=== PATIENT | female | born 1995 | race Caucasian/White ===

== ENCOUNTER 2019-06-19 23:14 | Inpatient (IN) | payer OTHER ==
--- NOTE | 2019-06-19 23:30 | RAD ---
Portable frontal chest radiograph: 06/19/2019 COMPARISON: None HISTORY: Intubated patient FINDINGS: There is an endotracheal tube and nasogastric tube in proper position. There is mild linear density in the medial aspect of both lung bases. No focal consolidation. IMPRESSION: Streaky opacity in both lung bases suggesting infiltrate, volume loss, or aspiration.
[2019-06-19 23:32] LABS: #Eosinphils 0.1 thou/uL (0.0-0.7); #Monocytes 0.3 thou/uL (0.11-0.59); #Neutrophils 2.7 thou/uL (1.40-6.50); %Basophils 0.4 % (0.0-1.0); %Eosinophils 2.3 % (0.0-10.0); %Lymphocytes 24.8 % (21.0-51.0); %Monocytes 6.6 % (0.0-10.0); %Neutrophils 65.8 % (42.0-75.0); Hemoglobin 11.2 g/dL (12.0-16.0); Mean Corpuscular HGB CONC 33.5 g/dL (32.0-36.0); Mean Corpuscular Hemoglobin 28.5 pg (27.0-31.0); Mean Corpuscular Volume 84.9 fL (78.0-98.0); Mean Platelet Volume 7.9 fL (7.4-10.4); Platelet Count 177 thou/uL (130-400); Red Blood Cell (RBC) Count 3.93 mill/uL (4.20-5.40); White Blood Cell (WBC) Count 4.1 thou/uL (4.8-10.8)
[2019-06-19 23:34] LABS: Actual Bicarbonate (HCO3a) 16.9 mEq/L (22-28); Base Excess (BEa) -9.1 mEq/L (-2.0 to +3.0); CO2 Tension 36.9 mmHg (35.0-45.0); Hemoglobin (Hb) 11.7 g/dL (12.0-16.0); O2 Tension (PaO2) 385.5 mmHg (80.0-100.0); pH, Arterial 7.28 (7.35-7.45)
[2019-06-19 23:35] LABS: ALV-art Gradient 281.375 (0-20); Analyzer IN Cardio ER; Calcium, Ionized 1.15 mmol/L (1.12-1.30); Carboxyhemoglobin (COHb) 0.3 gm% (0.0-3.0); Potassium - ABG Lab 2.91 mmol/L (3.70-5.30); Puncture Site RRA
[2019-06-19 23:35] LABS: Bilirubin Negative (Negative); Blood, Urine Negative (Negative); Glucose, Urine (Dipstick) Negative (Negative); Leukocyte Negative (Negative); Nitrite Negative (Negative); Protein, Urine (Dipstick) Negative (Neg-Trace); Urobilinogen 0.2 mg/dL (Less than 2)
[2019-06-19 23:36] LABS: Clarity Clear (Clear)
[2019-06-19 23:37] LABS: BHCG - Serum Negative (NEGATIVE); Pregs Control Background? CLEAR/WHITE (CLR/WHITE); Pregs Control Bar Appear? YES (CONTROL BAR)
[2019-06-19 23:53] LABS: ALT (SGPT) 15 U/L (8-55); AST (SGOT) 14 U/L (5-34); Acetaminophen Less than 6.0 mcg/mL (10.0-30.0); Albumin 3.4 g/dL (3.5-5.0); Alcohol 187 mg/dL (Less than 10); Alkaline Phosphatase 97 U/L (40-110); Anion Gap 12 mmol/L (10-20); BUN (Urea Nitrogen) 5 mg/dL (7.0-18.7); Bilirubin, Total 0.8 mg/dL (0.2-1.2); Calc. Creatinine Clearance 0 mL/min (70-130); Calcium 7.8 mg/dL (7.8-10.44); Carbon Dioxide 18 mmol/L (22-29); Chloride 110 mmol/L (98-107); Estimated GFR-MDRD Greater than 90; Glucose 88 mg/dL (70-105); Protein, Total 5.4 g/dL (6.0-8.3); Salicylate Less than 8.0 mg/dL (15.0-30.0); Sodium 137 mmol/L (136-145)
[2019-06-19 23:56] LABS: Amphetamine Detected (NotDetected); Barbiturates Screen Not Detected (NotDetected); Benzodiazepine Screen Not Detected (NotDetected); Cocaine Metabolite Screen Not Detected (NotDetected); Medtox Control Line Valid? VALID (VALID); Medtox Reader # READER 4; Methadone Not Detected (NotDetected); Methamphetamine Not Detected (NotDetected); Opiate Screen Not Detected (NotDetected); Oxycodone Screen Not Detected (NotDetected); Phencyclidine (PCP) Not Detected (NotDetected); THC/Cannabinoid Screen Not Detected (NotDetected); Tricyclic Screen Not Detected (NotDetected)
[2019-06-19 23:58] LABS: Potassium 2.7 mmol/L (3.5-5.1)
[2019-06-20] MEDS ORDERED: CCU Electrolyte Replacement 1 EACH IVPB ONE (00:39)
[2019-06-20] MEDS ORDERED: PHOS-NAK 1 PKT PACK PO PRN ×2 (00:43)
[2019-06-20] MEDS ORDERED: Morphine 2 MG/ML SYRINGE SLOW IVP PRN (00:43)
[2019-06-20] MEDS ORDERED: Potassium Chloride 40 MEQ in Premix Bag 1 BAG IVPB PRN (00:43)
[2019-06-20] MEDS ORDERED: fentaNYL Citrate/PF 2,000 MCG in Sodium Chloride 0.9% 60 ML IV SCH (00:43)
[2019-06-20] MEDS ORDERED: Potassium Chloride 40 MEQ in Sodium Chloride 0.9% 250 ML 250 ML IVPB PRN (00:43)
[2019-06-20] MEDS ORDERED: Potassium Phosphate 15 MMOL in Sodium Chloride 0.9% 250 ML 250 ML IV PRN (00:43)
[2019-06-20] MEDS ORDERED: CCU ELECTROLYTE REPLACEMENT PROTOCOL FS PRN (00:43)
[2019-06-20] MEDS ORDERED: Potassium Phosphate 12 MMOL in Sodium Chloride 0.9% 250 ML 250 ML IV PRN (00:43)
[2019-06-20] MEDS ORDERED: Magnesium Oxide 400 MG TAB PO PRN ×2 (00:43)
[2019-06-20] MEDS ORDERED: Fentanyl BOLUS 250 ML IVPB PRN (00:43)
[2019-06-20] MEDS ORDERED: Potassium Chloride 20 MEQ TAB PO PRN (00:43)
[2019-06-20] MEDS ORDERED: DISCONTINUE PREVIOUS NARCOTIC PAIN MEDICATIONS AND BENZODIAZEPINES FS SCH (00:43)
[2019-06-20] MEDS ORDERED: Propofol BOLUS 1,000 MG/100 ML VIAL IV PRN (00:43)
[2019-06-20] MEDS ORDERED: Potassium Phosphate 9 MMOL in Sodium Chloride 0.9% 100 ML IVPB PRN (00:43)
[2019-06-20] MEDS ORDERED: Lorazepam 2 MG/ML VIAL SLOW IVP PRN (00:43)
[2019-06-20] MEDS ORDERED: Magnesium 2 GM/50 ML 2 GM in Premix Bag 1 BAG IVPB PRN (00:43)
[2019-06-20] MEDS ORDERED: Potassium Chloride 40 MEQ in Sodium Chloride 0.9% 250 ML 250 ML IVPB SCH (00:45)
[2019-06-20] MEDS ORDERED: Ventilator Sedation Protocol 1 EACH FS SCH (00:45)
[2019-06-20] MEDS ORDERED: Ketamine 50 MG/ML (10ML VIAL) ONE (00:50)
[2019-06-20 01:55] VITALS: BMI 35.8
[2019-06-20] MEDS: 1/2 NS w/KCL 20 mEq 1,000 ML IV SCH ×3 (02:03→17:24)
[2019-06-20] MEDS: Propofol 1,000 MG/100 ML VIAL IV PRN ×3 (02:23→10:00)
--- NOTE | 2019-06-20 05:28 | HP ---
CHIEF COMPLAINT: Overdose and altered mental status. HISTORY OF PRESENT ILLNESS: Ms. Whitehead is a 23-year-old female with past medical history of ? depression, was brought to the emergency room by EMS for evaluation of possible overdose and alcohol abuse. As per EMS, the patient's boyfriend reported she took phentermine. The patient arrives intubated. EMS report GCS 4 on the scene. The patient was given Narcan with no response. Currently, patient is intubated. No further history can be obtained at this time. PAST MEDICAL HISTORY: Depression? PAST SURGICAL HISTORY: . PAST PSYCHIATRIC HISTORY: Anxiety and depression. SOCIAL HISTORY: Drinks socially. No history of smoking reported. ALLERGIES: UNCONFIRMED, NO KNOWN ALLERGIES. HOME MEDICATIONS: Phentermine? REVIEW OF SYSTEMS: Unable to obtain due to patient's underlying medical condition. FAMILY HISTORY: Unknown. PHYSICAL EXAMINATION: GENERAL: The patient is a currently intubated and sedated. VITAL SIGNS: Blood pressure is 125/81, pulse is 85, respiratory rate is 12, temperature is 95. HEAD AND NECK: Normocephalic and atraumatic. NECK: Supple. No JVD. CHEST: Fair bilateral air entry. HEART: S1, S2. Regular. ABDOMEN: Soft. Bowel sounds present. NEUROLOGIC: Intubated and sedated. PSYCHIATRIC: Unable to assess. EXTREMITIES: No clubbing, no cyanosis. LABORATORY DATA: WBC 4.1, hemoglobin 11.2, and platelets 177. Sodium 137, potassium 2.7, BUN is 5. WBC 4.1, hemoglobin 11.2, platelets 177. Urine drug screen positive for amphetamine. Plasma alcohol level is 187. ASSESSMENT: 1. Acute encephalopathy, toxic/metabolic, acute respiratory failure. 2. Alcohol intoxication. 3. Drug overdose. 4. Anxiety and depression history. PLAN: 1. Admit to ICU. 2. Continue full ventilator support. 3. Keep n.p.o. 4. IV fluids. 5. Consult Pulmonary/ebd teacher for critical care management and ventilator management. 6. GI and DVT prophylaxis as appropriate. 7. Expected length of stay, 2 midnights or more. Job ID: [id number]
[2019-06-20 06:37] LABS: Actual Bicarbonate (HCO3a) 16.2 mEq/L (22-28); Base Excess (BEa) -7.9 mEq/L (-2.0 to +3.0); CO2 Tension 29.2 mmHg (35.0-45.0); Calcium, Ionized 1.19 mmol/L (1.12-1.30); Carboxyhemoglobin (COHb) 0.5 gm% (0.0-3.0); Hemoglobin (Hb) 13.1 g/dL (12.0-16.0); pH, Arterial 7.36 (7.35-7.45)
[2019-06-20 06:56] LABS: Puncture Site RRAD
[2019-06-20 08:56] LABS: #Eosinphils 0.1 thou/uL (0.0-0.7); #Lymphocytes 1.4 thou/uL (1.20-3.40); #Monocytes 0.6 thou/uL (0.11-0.59); #Neutrophils 6.2 thou/uL (1.40-6.50); %Basophils 0.2 % (0.0-1.0); %Eosinophils 1.1 % (0.0-10.0); %Lymphocytes 16.5 % (21.0-51.0); %Monocytes 7.1 % (0.0-10.0); Hemoglobin 12.7 g/dL (12.0-16.0); Mean Corpuscular HGB CONC 32.4 g/dL (32.0-36.0); Mean Corpuscular Hemoglobin 27.8 pg (27.0-31.0); Mean Corpuscular Volume 85.8 fL (78.0-98.0); Mean Platelet Volume 8.3 fL (7.4-10.4); Platelet Count 217 thou/uL (130-400); RBC Distribution Width 13.2 % (11.5-14.5); Red Blood Cell (RBC) Count 4.56 mill/uL (4.20-5.40); White Blood Cell (WBC) Count 8.3 thou/uL (4.8-10.8)
[2019-06-20] MEDS ORDERED: FLU VACC QS2019-20(6MOS UP)/PF 60 MCG/0.5 ML SYRINGE IM ONE (09:00)
[2019-06-20] MEDS: Famotidine/PF 20 mg/2ml Vial SLOW IVP SCH ×2 (09:15→19:58)
[2019-06-20] MEDS: Heparin 5,000 UNITS/ML VIAL SC SCH ×2 (09:15→19:58)
[2019-06-20 09:20] LABS: ALT (SGPT) 17 U/L (8-55); AST (SGOT) 14 U/L (5-34); Albumin 3.7 g/dL (3.5-5.0); Alkaline Phosphatase 112 U/L (40-110); Anion Gap 16 mmol/L (10-20); BUN (Urea Nitrogen) 4 mg/dL (7.0-18.7); Bilirubin, Total 1.1 mg/dL (0.2-1.2); Calc. Creatinine Clearance 164 mL/min (70-130); Calcium 8.8 mg/dL (7.8-10.44); Carbon Dioxide 15 mmol/L (22-29); Chloride 114 mmol/L (98-107); Estimated GFR-MDRD Greater than 90; Globulin 2.4 g/dL (2.4-3.5); Glucose 76 mg/dL (70-105); Protein, Total 6.1 g/dL (6.0-8.3); Sodium 141 mmol/L (136-145)
--- NOTE | 2019-06-20 14:28 | CON ---
DATE OF CONSULTATION: 06/20/2019 HISTORY OF PRESENT ILLNESS: Ms. Whitehead is a 23-year-old female who apparently was intubated for respiratory depression associated with an overdose. She is wide awake. Apparently, she was intubated in the field. Her blood alcohol level is 187. PAST MEDICAL HISTORY: Remarkable for and depression. SOCIAL HISTORY: Unknown. ALLERGIES: NO REPORTED ALLERGIES. FAMILY HISTORY: Unknown. REVIEW OF SYSTEMS: Not obtainable since the patient is intubated. OBJECTIVE: VITAL SIGNS: Heart rate this morning was in the 90s, respiratory rate was in the teens, minute volume is about 6 L a minute. HEAD AND NECK: Unremarkable. Pupils are equal. Sclerae are anicteric. NECK: Supple. LUNGS: Clear. HEART: Regular rhythm. No S3. ABDOMEN: Soft and nontender. EXTREMITIES: Without clubbing, cyanosis, or edema. LABORATORY DATA: White count 8.3, hemoglobin 12.7, platelets 217. Electrolytes ; sodium 141, potassium 4, chloride 114, bicarb 15, BUN 4, creatinine 0.76. IMPRESSION: 1. Status post intubation for an overdose. 2. Hyperchloremic acidosis, likely iatrogenic related IV fluids. I felt she was a candidate for extubation. This has been done successfully. She can be transferred out of the critical care unit if she is stable for 4 hours. Critical care time 35 min. Job ID: [id number] MTDD
[2019-06-21] MEDS: 1/2 NS w/KCL 20 mEq 1,000 ML IV SCH ×3 (01:31→22:07)
[2019-06-21 04:33] LABS: Band 3 % (5-11); Eosinophils 5 % (0-10); Hemoglobin 11.7 g/dL (12.0-16.0); Lymphocytes 19 % (21-51); MDiff Complete? YES; Mean Corpuscular HGB CONC 33.6 g/dL (32.0-36.0); Mean Corpuscular Hemoglobin 28.6 pg (27.0-31.0); Mean Corpuscular Volume 85.2 fL (78.0-98.0); Mean Platelet Volume 8.7 fL (7.4-10.4); Monocytes 3 % (0-10); Neutrophil 69 % (42-75); Platelet Count 187 thou/uL (130-400); RBC Distribution Width 13.4 % (11.5-14.5); Reactive Lymphocytes 1 % (0-10); Red Blood Cell (RBC) Count 4.09 mill/uL (4.20-5.40); White Blood Cell (WBC) Count 5.2 thou/uL (4.8-10.8)
[2019-06-21 04:37] LABS: ALT (SGPT) 14 U/L (8-55); AST (SGOT) 11 U/L (5-34); Albumin 3.5 g/dL (3.5-5.0); Alkaline Phosphatase 111 U/L (40-110); Anion Gap 11 mmol/L (10-20); BUN (Urea Nitrogen) 5 mg/dL (7.0-18.7); Bilirubin, Total 1.5 mg/dL (0.2-1.2); Calc. Creatinine Clearance 156 mL/min (70-130); Calcium 8.6 mg/dL (7.8-10.44); Carbon Dioxide 20 mmol/L (22-29); Chloride 109 mmol/L (98-107); Estimated GFR-MDRD Greater than 90; Globulin 2.2 g/dL (2.4-3.5); Glucose 72 mg/dL (70-105); Protein, Total 5.7 g/dL (6.0-8.3); Sodium 136 mmol/L (136-145)
[2019-06-21] MEDS: Heparin 5,000 UNITS/ML VIAL SC SCH ×2 (08:39→20:27)
[2019-06-21] MEDS: Famotidine/PF 20 mg/2ml Vial SLOW IVP SCH ×2 (08:40→20:27)
--- NOTE | 2019-06-21 15:30 | PDOC.HOSPP ---
- Subjective Encounter Date: 06/21/19 Subjective: The patient is asymptomatic - Objective Vital Signs & Weight: Vital Signs (12 hours) Temp Pulse Ox 06/21/19 08:00 100 06/21/19 07:46 98.6 F 06/21/19 04:00 98.4 F Weight Weight 199 lb 1.239 oz Most Recent Monitor Data Heart Rate from ECG 62 NIBP 110/66 NIBP BP-Mean 80 Respiration from ECG 19 SpO2 100 I&O: 06/20/19 06/21/19 06/22/19 06:59 06:59 06:59 Intake Total 341.9 3408 0 Output Total 1175 2250 300 Balance -833.1 1158 -300 Result Diagrams: 06/21/19 03:17 06/21/19 03:17 Hospitalist ROS - Medication Medications: Active Medications Generic Name Dose Route Start Last Admin Trade Name Freq PRN Reason Stop Dose Admin Famotidine 20 mg 06/20/19 09:00 06/21/19 08:40 Pepcid SLOW IVP 20 mg Q12HR SHERRI Administration Heparin Sodium (Porcine) 5,000 units 06/20/19 09:00 06/21/19 08:39 Heparin SC 5,000 units BID SHERRI Administration Potassium Chloride/Sodium Chloride 1,000 mls @ 125 mls/hr 06/20/19 00:45 11:29 1/2 Ns W/Kcl 20 Meq IV 1,000 mls .Q8H SHERRI Administration - Exam General Appearance: NAD ENT: normocephalic atraumatic Neck: supple, no JVD Heart: RRR, no murmur, no gallops, no rubs, normal peripheral pulses Respiratory: normal chest expansion, no tachypnea Gastrointestinal: soft, non-tender Neurological: cranial nerve grossly intact, no focal deficits Hosp A/P (1) Toxic encephalopathy Code(s): G92 - TOXIC ENCEPHALOPATHY Status: Acute (2) Acute respiratory failure with hypoxia Code(s): J96.01 - ACUTE RESPIRATORY FAILURE WITH HYPOXIA Status: Acute (3) Alcohol abuse with intoxication Code(s): F10.129 - ALCOHOL ABUSE WITH INTOXICATION, UNSPECIFIED Status: Acute - Plan Respiratory failure resolved. Transfer to Medical floor If no signs of withdrawal tomorrow we will DC her
[2019-06-22 04:36] LABS: ALT (SGPT) 11 U/L (8-55); AST (SGOT) 10 U/L (5-34); Albumin 3.5 g/dL (3.5-5.0); Alkaline Phosphatase 102 U/L (40-110); Anion Gap 12 mmol/L (10-20); BUN (Urea Nitrogen) 6 mg/dL (7.0-18.7); Bilirubin, Total 0.5 mg/dL (0.2-1.2); Calc. Creatinine Clearance 167 mL/min (70-130); Calcium 8.7 mg/dL (7.8-10.44); Carbon Dioxide 23 mmol/L (22-29); Chloride 108 mmol/L (98-107); Estimated GFR-MDRD Greater than 90; Globulin 2.3 g/dL (2.4-3.5); Glucose 97 mg/dL (70-105); Protein, Total 5.8 g/dL (6.0-8.3); Sodium 139 mmol/L (136-145)
[2019-06-22 05:09] LABS: Band 5 % (5-11); Eosinophils 8 % (0-10); Hemoglobin 11.8 g/dL (12.0-16.0); Lymphocytes 28 % (21-51); MDiff Complete? YES; Mean Corpuscular HGB CONC 32.6 g/dL (32.0-36.0); Mean Corpuscular Hemoglobin 27.7 pg (27.0-31.0); Mean Platelet Volume 8.5 fL (7.4-10.4); Monocytes 5 % (0-10); Neutrophil 54 % (42-75); Platelet Count 209 thou/uL (130-400); RBC Distribution Width 13.3 % (11.5-14.5); Red Blood Cell (RBC) Count 4.27 mill/uL (4.20-5.40); White Blood Cell (WBC) Count 4.4 thou/uL (4.8-10.8)
[2019-06-22] MEDS: Famotidine/PF 20 mg/2ml Vial SLOW IVP SCH (08:07)
[2019-06-22] MEDS: Heparin 5,000 UNITS/ML VIAL SC SCH (08:08)
[2019-06-22 12:43] VITALS: TEMP 98.6
[2019-06-22 17:08] VITALS: BP 106/52
== END 2019-06-22 19:30 | disposition home or self-care (01) | DRG 917 ==
LOC: ERS 23:14 → CCU 06-20 00:03 → ONC 06-21 22:45
PROVIDERS: ADMIT Internal Medicine; ATTEND Internal Medicine
PROC: 0BH17EZ Insertion of Endotracheal Airway into Trachea, Via Natural or Artificial Opening (ICD-10-PCS; principal; 2019-06-20)
PROC: 5A1935Z Respiratory Ventilation, Less than 24 Consecutive Hours (ICD-10-PCS; 2019-06-20)
DX: T50.5X2A Poisoning by appetite depressants, intentional self-harm, initial encounter (principal); G92 Toxic encephalopathy; J96.01 Acute respiratory failure with hypoxia; E87.2 Acidosis; F10.129 Alcohol abuse with intoxication, unspecified; F41.9 Anxiety disorder, unspecified; F32.9 Major depressive disorder, single episode, unspecified; O99.345 Other mental disorders complicating the puerperium; F53.0 Postpartum depression; Y92.091 Bathroom in other non-institutional residence as the place of occurrence of the external cause
CPT/HCPCS: 36415; 51702; 71045; 80053; 80306; 80307; 81003; 82805; 83735; 84703; 85007; 85025; 85027; 93005; 94002; 94003; 96374; 96375; 99292; J1644; J2270; J2704; J3480; J7050; S0028